=== PATIENT | male | born 1955 | race Caucasian/White ===

== ENCOUNTER 2021-09-15 15:32 | Emergency (ER) | payer SELFPAY ==
[2021-09-15 16:02] VITALS: BP 170/109; PULSE 97
[2021-09-15] MEDS ORDERED: Sodium Chloride 0.9% 10 ML Syringe FLUSH PRN (16:04)
--- NOTE | 2021-09-15 16:22 | EDM.PDOC ---
ED HPI GENERAL MEDICAL PROBLEM - General Chief Complaint: Chest Pain Stated Complaint: COVID +/SOB Time Seen by Provider: 09/15/21 15:54 Source of Information: Reports: Patient, RN Notes Reviewed History Limitations: Reports: No Limitations - History of Present Illness INITIAL COMMENTS - FREE TEXT/NARRATIVE: Patient is a 65-year-old male who presents to the ER for evaluation of his [id number] illness. Patient states that he developed symptoms at around 3 AM this morning, he had a cough, shortness of breath, some slight chest pressure, but the chest pressure has pretty much resolved itself. He went to the clinic today to get a COVID-19 swab, but he states that they brought him to the ER for further evaluation because he mentioned that he was having chest pressure. Patient states that his son did test positive for COVID-19 1.5 weeks ago. States the only reason he came to the clinic was to get a Covid swab due to his son having tested positive for COVID-19. He is denying any fevers or chills, nausea/vomiting/diarrhea. States all he wants done today is a Covid swab. - Related Data Allergies Allergy/AdvReac Type Severity Reaction Status Date / Time No Known Allergies Allergy Verified 09/15/21 16:04 Home Meds: Home Meds . [No Known Home Meds] 09/15/21 [History] Past Medical History Cardiovascular History: Reports: Arrhythmia, Hypertension Respiratory History: Reports: Other (See Below) Other Respiratory History: pleural effusion - Past Surgical History HEENT Surgical History: Reports: Oral Surgery GI Surgical History: Reports: Appendectomy Social & Family History - Family History Family Medical History: No Pertinent Family History - Tobacco Use Tobacco Use Status *Q: Current Every Day Tobacco User Years of Tobacco use: 45 Packs/Tins Daily: 0.5 - Caffeine Use Caffeine Use: Reports: Soda - Recreational Drug Use Recreational Drug Use: No ED ROS GENERAL - Review of Systems Review Of Systems: Comprehensive ROS is negative, except as noted in HPI. ED EXAM, GENERAL - Physical Exam Exam: See Below Exam Limited By: No Limitations General Appearance: Alert, WD/WN, No Apparent Distress Respiratory/Chest: No Respiratory Distress, Lungs Clear, Normal Breath Sounds, No Accessory Muscle Use, Chest Non-Tender Cardiovascular: Normal Peripheral Pulses, Regular Rate, Rhythm, No Edema Peripheral Pulses: 2+: Radial (L), Radial (R) Extremities: Normal Inspection, Normal Capillary Refill Neurological: Alert, Oriented, Normal Cognition, No Motor/Sensory Deficits Psychiatric: Normal Affect, Normal Mood Skin Exam: Warm, Dry, Intact, Normal Color, No Rash Course - Vital Signs Last Recorded V/S: Last Vital Signs Temp 98.7 F 09/15/21 15:54 Pulse 97 09/15/21 15:54 Resp 28 H 09/15/21 15:54 BP 170/109 H 09/15/21 15:54 Pulse Ox 97 09/15/21 15:54 - Orders/Labs/Meds Orders: Active Orders 24 hr Category Date Time Status Chest 1V Frontal [CR] Stat Exams 09/15/21 16:03 Stop Req COVID-19/FLU A+B [MOLEC] Stat Lab 09/15/21 16:03 Ordered Meds: Medications Discontinued Medications Generic Name Dose Route Start Last Admin Trade Name Freq PRN Reason Stop Dose Admin Sodium Chloride 10 ml 09/15/21 16:04 Sodium Chloride 0.9% 10 Ml Syringe FLUSH ASDIRECTED PRN Keep Vein Open - Re-Assessments/Exams Free Text/Narrative Re-Assessment/Exam: 09/15/21 16:19 Patient presents to the ER for his [id number] symptoms and wanting a COVID-19 test. I did go over with him the possibility of him having serious cardiac etiology to the chest pressure, he states that he still does not want any further testing done and only wants a COVID-19 screen. We will go ahead and get his COVID-19 screen obtained, and then discharge him home and we will call him with results. Departure - Departure Time of Disposition: 16:20 Disposition: Home, Self-Care 01 Condition: Good Clinical Impression: Encounter for screening for COVID-19 - Discharge Information *PRESCRIPTION DRUG MONITORING PROGRAM REVIEWED*: No *COPY OF PRESCRIPTION DRUG MONITORING REPORT IN PATIENT PETE: No Instructions: COVID-19: Quarantine vs. Isolation - [facility] (11/10/2020) Referrals: PCP,None [Primary Care Provider] - Additional Instructions: You were evaluated in the ER today for your [id number] symptoms. Your COVID-19 test was collected and you will be called with results; in the event that it is negative, sometimes these are false negatives. Due to you having only started symptoms today. These Covid screens are only about 60% accurate; and it is common to test negative initially but then test positive a few days later. Due to this, we recommend that you try to isolate yourself away from others, and get retested for COVID-19 in about 3 or 4 days. There are multiple sites that can do this, there is a drive-through clinic by the , there is a walk-in clinic and our Covid clinic that can help you with these. Continue all other medications as previously prescribed. Do not hesitate to return to the ER at any time if symptoms change or worsen. Sepsis Event Note (ED) - Evaluation Sepsis Screening Result: No Definite Risk - Focused Exam Vital Signs: Vital Signs Temp Pulse Resp BP Pulse Ox 09/15/21 15:54 98.7 F 97 28 H 170/109 H 97 - My Orders Last 24 Hours: My Active Orders 09/15/21 16:03 Chest 1V Frontal [CR] Stat COVID-19/FLU A+B [MOLEC] Stat - Assessment/Plan Last 24 Hours: My Active Orders 09/15/21 16:03 Chest 1V Frontal [CR] Stat COVID-19/FLU A+B [MOLEC] Stat
[2021-09-15 16:51] LABS: CORONAVIRUS COVID-19 NAA NEGATIVE (NEGATIVE)
== END 2021-09-15 16:40 | disposition home or self-care (01) ==
LOC: JD.ED 15:32
DX: R07.89 Other chest pain (principal); I10 Essential (primary) hypertension; Z72.0 Tobacco use; Z20.822 Contact with and (suspected) exposure to COVID-19
CPT/HCPCS: 0240U; 99283

== ENCOUNTER 2022-04-04 03:39 | Emergency (ER) | payer SELFPAY ==
[2022-04-04 04:12] VITALS: BP 153/113; PULSE 83
== END 2022-04-04 05:00 ==
LOC: JD.ED 03:39
DX: I63.512 Cerebral infarction due to unspecified occlusion or stenosis of left middle cerebral artery (principal); R77.8 Other specified abnormalities of plasma proteins; Z20.822 Contact with and (suspected) exposure to COVID-19
CPT/HCPCS: 36415; 70450; 70450-26; 70496; 70496-26; 70498; 70498-26; 80053; 83880; 84484; 85025; 85379; 85610; 85730; 93005; 93010; 99285; 99285-25; U0002